=== PATIENT | female | born 1990 ===

== ENCOUNTER 2020-11-30 20:21 | Outpatient (CLI) | payer SELFPAY ==
[~2020-11-30] VITALS: Ht 167.6 cm; Wt 77.0 kg
[2020-11-30 20:43] VITALS: BP 107/67
[2020-11-30] MEDS ORDERED: ACETAMINOPHEN 325 MG TABLET PO PRN (22:00)
[2020-11-30] MEDS ORDERED: ACETAMINOPHEN 325 MG TABLET ONE (22:09)
== END 2020-11-30 23:29 | disposition home or self-care (01) ==
LOC: LDOP 20:21
PROVIDERS: ATTEND Obstetrics & Gynecology
DX: O32.1XX0 Maternal care for breech presentation, not applicable or unspecified (principal); Z3A.35 35 weeks gestation of pregnancy
CPT/HCPCS: 59025; 76805